=== PATIENT | male | born 1995 ===

== ENCOUNTER 2022-07-05 19:37 | Outpatient (REF) | payer BC, SELFPAY ==
[2022-07-07 11:28] LABS: COVID-19 RT-PCR UVMMC Result Negative (Negative)
== END 2022-07-05 19:38 | disposition home or self-care (01) ==
LOC: NCHCN 19:37
PROVIDERS: Visit Provider Nurse Practitioner Family
DX: Z20.822 Contact with and (suspected) exposure to COVID-19 (principal)
CPT/HCPCS: U0003